=== PATIENT | female | born 1955 | race Caucasian/White ===

== ENCOUNTER → 2020-10-07 10:35 | Outpatient (CLI) | payer MEDICARE, OTHER, SELFPAY ==
--- NOTE | 2020-10-07 10:38 | DI.CT.S_ITS ---
PROCEDURE: CT LE RT WO CON INDICATIONS: Pain in right ankle and joints of right foot TECHNIQUE: Noncontrast 1-1.5 mm axial sections acquired from above the tibiotalar joint to the bottom of the calcaneus, with coronal and sagittal reformats. COMPARISON: None. FINDINGS: Image quality: Degraded by motion artifact. Bones: No definite or displaced fracture identified. Scattered degenerative subchondral sclerosis and spurring. Anatomic alignment. Tibiotalar joint space grossly preserved. 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 Age-indeterminate punctate calcifications seen adjacent to the lateral aspect of the proximal phalanx of the great toe. Soft tissues: Circumferential subcutaneous stranding and edema in the hindfoot. Mild 1st MTP osteoarthritis. The visualized muscles and tendons grossly unremarkable. IMPRESSION: Chronic appearing and degenerative changes as above. If the patient's pain or other symptoms persist, consider further evaluation with MRI Diffuse subcutaneous hindfoot edema Dictated by: Cornelio Sanchez M.D. on 10/07/2020 at 11:12 Approved by: Cornelio Sanchez M.D. on 10/07/2020 at 11:16
== END ==
PROVIDERS: PCP Physician Assistant Medical; Referring Provider Podiatrist; Visit Provider Podiatrist
DX: M25.571 Pain in right ankle and joints of right foot (principal); M25.371 Other instability, right ankle; R26.2 Difficulty in walking, not elsewhere classified; M76.61 Achilles tendinitis, right leg
CPT/HCPCS: 73700

== ENCOUNTER → 2021-03-10 12:43 | Outpatient (CLI) | payer MEDICARE, OTHER, SELFPAY ==
--- NOTE | 2021-03-10 | DI.CT.S_ITS ---
PROCEDURE: CT LUMBAR SPINE WO CON INDICATIONS: Radiculopathy, lumbar region TECHNIQUE: Noncontrast 3 mm thick sections acquired from the T12 level to the sacrum. Sagittal and coronal reformats were constructed. For radiation dose reduction, the following was used: automated exposure control. COMPARISON: None. FINDINGS: Normal lumbar vertebral body height. Retrolisthesis of L5 with respect to L4 and S1 measuring approximately 2 millimeters. Otherwise normal alignment. No suspicious lytic or blastic osseous lesion. There is disc height loss from L2-L3 through L5-S1. Vacuum disc phenomenon at L2-L3. Facet osteoarthropathy from L3-L4 through L5-S1. The unenhanced prevertebral and paraspinous soft tissues are within normal limits. T12-L1: No spinal canal or neural foraminal stenosis. L1-L2: No spinal canal or neural foraminal stenosis. L2-L3: Disc desiccation and disc height loss with vacuum disc phenomenon. Diffuse disc bulge flattens and indents the ventral thecal sac. Buckling of the ligamentum flavum and facet hypertrophy further contribute to overall mild-moderate spinal canal stenosis. Foraminal components of the disc bulge and buckling of the ligamentum flavum combine to produce mild bilateral neural foraminal stenosis. L3-L4: Diffuse disc bulge with a superimposed broad-based posterior disc protrusion flattens the ventral thecal sac. No obvious spinal canal stenosis. Foraminal components of the disc bulge and buckling of the ligamentum flavum combine to produce mild bilateral neural foraminal stenosis. L4-L5: Diffuse disc bulge with a superimposed broad-based posterior disc protrusion flattens and indents the ventral thecal sac. Buckling of the ligamentum flavum and bulky facet hypertrophy further contribute to overall probable severe spinal canal stenosis. These factors combine to produce mild bilateral neural foraminal narrowing. L5-S1: Diffuse disc bulge with calcified annular components in the central, right paracentral, and right subarticular zones, as well as the bilateral neural foraminal zones. Although not entirely definitive there appears to be a noncalcified component of the disc protrusion which produces moderate to severe subarticular zone stenosis, left greater than right. Foraminal components of the disc bulge and posterior osteophytic ridging combine with neural foraminal height loss as a function of spondylosis to produce moderate bilateral neural foraminal stenosis. IMPRESSION: Multilevel multifactorial degenerative changes with suspected severe spinal canal stenosis at L4-L5 and suspected moderate to severe subarticular zone stenosis at L5-S1. Varying degrees of neural foraminal stenosis up to moderate. Dictated by: Gautam Villa M.D. on 03/10/2021 at 13:52 Approved by: Gautam Villa M.D. on 03/10/2021 at 13:55
== END ==
PROVIDERS: PCP Physician Assistant Medical; Referring Provider Orthopaedic Surgery; Visit Provider Orthopaedic Surgery
DX: M47.26 Other spondylosis with radiculopathy, lumbar region (principal); M47.27 Other spondylosis with radiculopathy, lumbosacral region; M48.061 Spinal stenosis, lumbar region without neurogenic claudication; M48.07 Spinal stenosis, lumbosacral region
CPT/HCPCS: 72131

== ENCOUNTER → 2024-05-18 08:18 | Outpatient (CLI) | payer MEDICARE, OTHER, SELFPAY ==
--- NOTE | 2024-05-18 08:20 | DI.MRI.S_ITS ---
PROCEDURE: MR LUMBAR SPINE WO CON INDICATIONS: SPINAL STENOSIS LUMBAR REGION TECHNIQUE: Noncontrast sagittal T1 spin echo and T2 fast echo, sagittal STIR, and T2 fast spin echo through the lumbar spine. In cases with scoliosis, additional coronal T2 fast spin echo may be performed. COMPARISON: [facility], CT, CT LUMBAR SPINE WO CON, 03/10/2021, 13:09. [facility], CR, XR LUMBAR SPINE WITH OBLIQUES PLUS FLEXION EXTENSION, 04/20/2024, 14:12. FINDINGS: Image quality: This examination is limited by involuntary motion artifact. Alignment and Curvature: There is minimal retrolisthesis at L1-L2 and L2 is L3. Minimal anterolisthesis is seen at L4-L5, without associated pars defects. There is minimal retrolisthesis seen at L5-S1. Bone Marrow: Marrow is of normal overall signal. No acute vertebral body compression fractures. Spinal Cord: Conus medullaris terminates at the L1 level. Visualized cord demonstrates normal signal and size. Paraspinous Soft Tissues: No paravertebral masses. T12-L1: No significant abnormality is seen. L1-L2: The disc height is well-preserved. Loss of disc signal is seen at this level. Mild generalized disc bulge is seen. Mild facet joint hypertrophy is seen. No significant neural foraminal or central canal narrowing can be seen. L2-L3: Moderate loss of disc height is seen. Loss of disc signal is seen. Moderate disc bulge is seen, which is eccentric to the right. There is a mild central/right disc protrusion. Moderate bilateral neural foraminal narrowing can be seen, right worse than left. Moderate central canal narrowing is seen. L3-L4: Mild loss of disc height is seen. Loss of disc signal is seen. Moderate disc bulge is seen, which is eccentric to the left. There is a superimposed central disc protrusion. Moderate facet joint hypertrophy is seen. There is moderate left-sided and minimal right-sided neural foraminal narrowing. Moderate central canal narrowing is seen. L4-L5: The disc height is well-preserved. Loss of disc signal is seen at this level. Mild to moderate disc bulge is seen, with a central disc protrusion. At least moderate facet hypertrophy is seen. Mild bilateral neural foraminal narrowing is seen. At least moderate central canal narrowing is seen. L5-S1: At least moderate loss of disc height and disc signal can be seen. Reactive marrow endplate changes are seen, which are hyperintense on T1-weighted and T2-weighted imaging and most consistent with fatty metaplasia (Modic type II changes). Moderate generalized disc bulge is seen. There is a central disc osteophyte protrusion. Mild to moderate facet hypertrophy is seen. No neural foraminal narrowing is seen. Mild to moderate central canal narrowing is seen. IMPRESSION: Multiple levels of lumbar spine degenerative change can be seen, which are overall worst inferiorly. Dictated by: Diony Samayoa M.D. on 05/18/2024 at 11:39 Approved by: Diony Samayoa M.D. on 05/18/2024 at 11:44
== END ==
PROVIDERS: PCP Physician Assistant Medical; Referring Provider Physical Medicine & Rehabilitation Pain Medicine; Visit Provider Physical Medicine & Rehabilitation Pain Medicine
DX: M48.062 Spinal stenosis, lumbar region with neurogenic claudication (principal); M47.816 Spondylosis without myelopathy or radiculopathy, lumbar region; M47.817 Spondylosis without myelopathy or radiculopathy, lumbosacral region
CPT/HCPCS: 72148